=== PATIENT | female | born 1975 | race African-American/Black ===

== ENCOUNTER 2016-07-19 14:03 | Day surgery (SDC) | payer OTHER ==
[~2016-07-19] VITALS: Ht 170.2 cm; Wt 88.5 kg
[~2016-07-19 14:03] MED LIST: AMITRIPTYLINE H50 MG PO; ATIVAN0.25 MG PO; BUSPAR7.5 MG PO; BUSPIRONE HCL15 MG PO; CONCERTA18 MG PO; CYANOCOBAL1000 MCG/2 IM; ELAVIL25 MG PO; ERGOCALCIF50000 UNIT PO; FAMCICLOVIR250 MG PO; FAMVIR250 MG PO; FERROUS SULFAT325 MG PO; FIORICET 50-301 EACH PO; FLAGYL500 MG PO; FLEXERIL5 MG PO; LANTUS 3 M100 UNITS/ SC; LEVEMIR100 UNIT/1 SQ; LEVOTHYROXINE100 MCG PO; LEXAPRO20 MG PO; LO-OVRAL-281 EACH PO; Lopid PO; MECLIZINE HCL25 MG PO; METFORMIN HCL500 MG PO; MOBIC15 MG PO; NAPROSYN500 MG PO; NORCO 5/3251 TABLET PO; NOVOLOG MI100 UNIT/M; NOVOLOG MI100 UNIT/M SC; OXYCODONE H5 MG/5 ML; OXYCODONE-ACET1 EACH PO; PERCOCET 5/31 TABLET PO; PROTONIX40 MG PO; RANITIDINE HCL150 M1 PO; Tylenol Extra Streng PO; VITAMIN C500 M1 PO; ZITHROMAX Z-PA250 MG PO; ZOFRAN ODT4 MG PO
== END 2016-07-19 16:08 | disposition home or self-care (01) ==
LOC: PAIN 14:03 → SDC 14:45 → PAIN 14:45
DX: M47.896 Other spondylosis, lumbar region (principal); M41.9 Scoliosis, unspecified; M54.41 Lumbago with sciatica, right side; E78.5 Hyperlipidemia, unspecified; E11.9 Type 2 diabetes mellitus without complications; E07.9 Disorder of thyroid, unspecified; F41.1 Generalized anxiety disorder; M25.552 Pain in left hip; H57.9 Unspecified disorder of eye and adnexa
CPT/HCPCS: J1030; J2250; J3010; S0020

== ENCOUNTER 2016-07-26 13:00 | Day surgery (SDC) | payer OTHER ==
[~2016-07-26] VITALS: Ht 170.2 cm; Wt 85.7 kg
== END 2016-07-26 16:00 | disposition home or self-care (01) ==
LOC: PAIN 13:00 → SDC 13:45 → PAIN 13:45
DX: M47.896 Other spondylosis, lumbar region (principal); M41.9 Scoliosis, unspecified; M54.5 Low back pain; F41.0 Panic disorder [episodic paroxysmal anxiety]; E78.5 Hyperlipidemia, unspecified; E11.9 Type 2 diabetes mellitus without complications; M25.551 Pain in right hip; E07.9 Disorder of thyroid, unspecified
CPT/HCPCS: J1030; J2250; J3010; S0020

== ENCOUNTER 2016-11-28 09:43 | Day surgery (SDC) | payer OTHER ==
[~2016-11-28] VITALS: Ht 170.2 cm; Wt 88.0 kg
[~2016-11-28 09:43] MED LIST changes: +CONCERTA36 MG PO; +CONCERTA54 MG PO; +IRON IV
[2016-11-28 11:45] LABS: POINT-OF-CARE METER ID UU14174212
== END 2016-11-28 12:22 | disposition home or self-care (01) ==
LOC: PAIN 09:43
PROVIDERS: Anesthesiology Pain Medicine
PROC: 015B3ZZ Destruction of Lumbar Nerve, Percutaneous Approach (ICD-10-PCS; principal; 2016-11-28)
DX: M47.816 Spondylosis without myelopathy or radiculopathy, lumbar region (principal); F41.9 Anxiety disorder, unspecified; G89.29 Other chronic pain; M41.9 Scoliosis, unspecified; E11.9 Type 2 diabetes mellitus without complications; E78.5 Hyperlipidemia, unspecified; E66.9 Obesity, unspecified; G25.81 Restless legs syndrome; E07.9 Disorder of thyroid, unspecified; Z98.84 Bariatric surgery status; Z68.30 Body mass index [BMI] 30.0-30.9, adult; Z88.1 Allergy status to other antibiotic agents; Z88.8 Allergy status to other drugs, medicaments and biological substances
CPT/HCPCS: 82948; J1030; J2250; J3010; S0020

== ENCOUNTER 2017-02-13 11:31 | Day surgery (SDC) | payer OTHER ==
[~2017-02-13] VITALS: Ht 170.2 cm; Wt 85.7 kg
== END 2017-02-13 13:25 | disposition home or self-care (01) ==
LOC: PAIN 11:31 → SDC 12:00 → PAIN 12:00
DX: M47.816 Spondylosis without myelopathy or radiculopathy, lumbar region (principal); M54.5 Low back pain; G89.29 Other chronic pain; M41.9 Scoliosis, unspecified; F41.8 Other specified anxiety disorders; E11.9 Type 2 diabetes mellitus without complications; E66.9 Obesity, unspecified; E07.9 Disorder of thyroid, unspecified; K21.9 Gastro-esophageal reflux disease without esophagitis; G47.30 Sleep apnea, unspecified; Z68.29 Body mass index [BMI] 29.0-29.9, adult
CPT/HCPCS: J1030; J1885; J2250; J3010; S0020

== ENCOUNTER 2018-01-02 12:30 | Day surgery (SDC) | payer OTHER ==
[~2018-01-02] VITALS: Ht 170.2 cm; Wt 83.9 kg
[~2018-01-02 12:30] MED LIST changes: +ENDOCET 10-3251 EACH PO; +HAIR SKIN NAIL1 EACH PO; -OXYCODONE-ACET1 EACH PO; +TOPROL XL25 MG PO; +ZANAFLEX2 M1 PO
== END 2018-01-02 14:12 | disposition home or self-care (01) ==
LOC: PAIN 12:30 → SDC 13:00 → PAIN 14:12
PROVIDERS: Anesthesiology Pain Medicine
PROC: BR161ZZ Fluoroscopy of Lumbar Facet Joint(s) using Low Osmolar Contrast (ICD-10-PCS; principal; 2018-01-02)
PROC: 3E0T3TZ Introduction of Destructive Agent into Peripheral Nerves and Plexi, Percutaneous Approach (ICD-10-PCS; principal; 2018-01-02)
DX: M47.816 Spondylosis without myelopathy or radiculopathy, lumbar region (principal); M25.512 Pain in left shoulder; M41.9 Scoliosis, unspecified; I10 Essential (primary) hypertension; E78.5 Hyperlipidemia, unspecified; Z79.891 Long term (current) use of opiate analgesic; Z88.5 Allergy status to narcotic agent
CPT/HCPCS: 82948; J1030; J2250; S0020

== ENCOUNTER 2018-01-09 09:12 | Day surgery (SDC) | payer OTHER ==
[~2018-01-09] VITALS: Ht 170.2 cm; Wt 83.9 kg
== END 2018-01-09 11:55 | disposition home or self-care (01) ==
LOC: PAIN 09:12 → SDC 09:45 → PAIN 11:55
PROVIDERS: Anesthesiology Pain Medicine
DX: M47.816 Spondylosis without myelopathy or radiculopathy, lumbar region (principal); M25.512 Pain in left shoulder; M41.9 Scoliosis, unspecified; E11.9 Type 2 diabetes mellitus without complications; E78.5 Hyperlipidemia, unspecified; I10 Essential (primary) hypertension; Z79.891 Long term (current) use of opiate analgesic; Z88.1 Allergy status to other antibiotic agents; Z88.5 Allergy status to narcotic agent
CPT/HCPCS: 82948; J1030; J2250; J3010; S0020

== ENCOUNTER 2018-01-10 10:12 | Emergency (ER) | payer OTHER ==
[~2018-01-10] VITALS: Ht 170.2 cm; Wt 83.7 kg
[2018-01-10 12:12] VITALS: BP 155/89
== END 2018-01-10 12:13 | disposition home or self-care (01) ==
LOC: EME 10:12
DX: M25.562 Pain in left knee (principal); Z98.51 Tubal ligation status; Z98.890 Other specified postprocedural states; Z88.1 Allergy status to other antibiotic agents; Z88.5 Allergy status to narcotic agent
CPT/HCPCS: 73564; 99281; 99284